=== PATIENT | female | born 2000 | race Two or more races ===

== ENCOUNTER 2025-01-03 09:15 | Day surgery (SDC) | payer MEDICAID, SELFPAY ==
[2025-01-02 08:07] VITALS: BMI 27.8
[2025-01-02 08:13] VITALS: BMI 27.8
[2025-01-02 09:53] LABS: Basophils % (Auto) 0 % (0-2.5); Eosinophils # (Auto) 0.2 Thou/mm3 (0.0-0.5); Eosinophils % (Auto) 2 % (0-10); Hematocrit 38.9 % (36.0-46.0); Hemoglobin 12.9 g/dL (12.0-16.0); Immature Granulocytes % (Auto) 0 % (0-0); Immature Granulocytes Auto 0.02 Thou/mm3 (0.00-0.00); Lymphocytes # (Auto) 2.4 Thou/mm3 (1.0-4.8); Lymphocytes % (Auto) 29 % (10-50); Mean Corpuscular HGB Conc 33.2 g/dl (31.0-37.0); Mean Corpuscular Hemoglobin 29.6 pg (25.0-35.0); Mean Corpuscular Volume 89 fL (80-100); Monocytes # (Auto) 0.7 Thou/mm3 (0.0-0.8); Monocytes % (Auto) 8 % (0-12); Neutrophils % (Auto) 60 % (37-80); Nucleated Red Blood Cell % 0 /100 WBC (0); Platelet Count 329 Thou/mm3 (140-440); RDW Standard Deviation 43.8 fL (36.4-46.3); Red Blood Count 4.36 Miln/mm3 (4.00-5.20); White Blood Count 8.3 Thou/mm3 (3.6-11.0)
[2025-01-02 10:00] LABS: Partial Thromboplastin Time 33.6 Seconds (22.0-36.0); Prothrombin Time 11.1 Seconds (9.0-12.2)
[2025-01-02 10:04] LABS: HCG,Qualitative Serum Negative
[2025-01-02 10:21] LABS: Alanine Aminotransferase < 7 U/L (10-49); Albumin, Serum 4.4 gm/dL (3.5-5.0); Albumin/Globulin Ratio 1.4 (1.2-2.2); Alkaline Phosphatase 60 U/L (46-116); Anion Gap 7 (7-16); Aspartate Amino Transferase 10 U/L (0-34); BUN/Creatinine Ratio 15 Ratio (12-20); Bilirubin,Total 0.4 mg/dL (0.3-1.2); Blood Urea Nitrogen 12 mg/dL (9-23); Calcium 9.4 mg/dL (8.3-10.6); Calcium (Corrected) 9.4 mg/dL (8.5-10.1); Chloride 105 mMol/L (98-107); Creatinine (Component) 0.8 mg/dL (0.6-1.3); Estimated Creatinine Clearance 96.9 mL/min (>60); Globulin 3.1 gm/dL (2.3-3.5); Glucose 85 mg/dL (74-106); Osmolality,Calculated 272 (275-295); Potassium 4.6 mMol/L (3.4-5.1); Sodium 137 mMol/L (136-145); Total Protein 7.5 gm/dL (5.7-8.2); eGFR > 60 See Note
[2025-01-03] VITALS (9 sets, daily range): BP systolic 97–108; BP diastolic 45–81; PULSE 71–128; RESP 15–96; TEMP 36.1–36.7; O2SAT 96–100; BMI 28.1
--- NOTE | 2025-01-03 10:21 | SUR.PREOP ---
Patient expressed gratitude for prayer before their procedure.
--- NOTE | 2025-01-03 10:22 | SUR.PREOP ---
Patient expressed gratitude for prayer before their procedure.
--- NOTE | 2025-01-03 10:23 | SUR.PREOP ---
Patient expressed gratitude for prayer before their procedure.
--- NOTE | 2025-01-03 12:35 | SUR.PHASEI ---
1235: Pt. wakes to name then drifts back to sleep, vitals stable, breathing unlabored, no complaint of pain or nausea, dressing to buttocks CDI, no active bleed noted, report received from MD Hicks and Tonny HU.
[2025-01-03] MEDS: fentaNYL CIT INJ 50 mCg/ML AMP 2ML 25 MCG IV ×4 (12:52→13:12)
--- NOTE | 2025-01-03 12:55 | PD.SUROPNT ---
Date of Procedure 01/03/25 Pre Op Diagnosis Recurrent pilonidal cyst with abscess, complicated Post Op Diagnosis Same Procedure Excision of the complicated recurrent pilonidal cyst and primary closure Findings Patient was found to have a recurrent pilonidal cyst at the upper portion of the cleft with an abscess. She was therefore scheduled for reexcision Procedure Description Of the patient was brought to the operating room endotracheal anesthesia was given. Then she was placed on prone position and his buttocks were taped apart the recurrent abscess was located at the upper portion of the cleft the lower. The area was washed with ChloraPrep solution and draped in a sterile manner timeout was performed. 2 g of Ancef was given IV. Then I made an elliptical incision and excised the anterior scar tissue. I found out some areas of chronic abscess but no jean carlos pus was seen. There were some unhealthy tissue which was included in the excision which was carried down to the presacral fascia. Bleeding points were controlled with cautery. At this time the tape holding the buttocks were released and I closed the subcutaneous tissue in 2 layers using 3-0 chromic sutures. Then the skin edges were approximated with 4-0 nylon stitches wound was then washed with saline solution and dressed with Adaptic and 4 x 4 gauze with compression Anesthesia GETA Pathology / specimen Other (Recurrent pilonidal cyst cyst with abscess) Estimated Blood Loss 30 Surgeon Tracey Cohen MD Surgical Staff Operation Date: 01/03/25 11:30 <No data on this case meets the specified criteria>
[2025-01-03] MEDS: ACETAMINOPHEN IVPB 1,000 MG/100 ML VIAL 250 MG IV (13:12)
--- NOTE | 2025-01-03 13:40 | SUR.PHASEII ---
1340: Pt. AAOx4, vitals stable, breathing unlabored, no complaint of pain or nausea, dressing to buttocks CDI, no active bleed noted, pt. tolerated sips of water well, pt. ambulated to wheelchair with steady gait and no assist, no complications. Gave discharge instructions to the pt. and her ride, both verbalized understanding and had no further questions. Pt. left with all personal belongings.
== END 2025-01-03 13:40 | disposition home or self-care (01) ==
PROVIDERS: PCP Nurse Practitioner; Referring Provider Surgery; Visit Provider Surgery
PROC: (CPT 11772; principal; 2025-01-03 11:15)
DX: L05.01 Pilonidal cyst with abscess (principal)
CPT/HCPCS: 11772; 36415; 80053; 84703; 85025; 85610; 85730; A4217; A4649; J0131; J0690; J1100; J2250; J2405; J2704; J3010; J3490